=== PATIENT | female | born 1945 | race Hispanic/Latino ===

== ENCOUNTER 2024-05-10 08:00 | Outpatient (RCR) | payer MEDICARE | END 2024-05-12 | LOC: PT 08:00 | PROVIDERS: ATTEND Specialist | DX: M17.11 Unilateral primary osteoarthritis, right knee (principal); M25.561 Pain in right knee; M25.562 Pain in left knee; M25.661 Stiffness of right knee, not elsewhere classified; M25.662 Stiffness of left knee, not elsewhere classified; M62.81 Muscle weakness (generalized); R26.2 Difficulty in walking, not elsewhere classified ==

== ENCOUNTER 2024-06-06 14:00 | Outpatient (RCR) | payer MEDICARE | END 2024-06-12 | LOC: PT 14:00 | PROVIDERS: ATTEND Specialist | DX: M17.11 Unilateral primary osteoarthritis, right knee (principal); M25.562 Pain in left knee; M25.561 Pain in right knee; M25.661 Stiffness of right knee, not elsewhere classified; M25.662 Stiffness of left knee, not elsewhere classified; M62.81 Muscle weakness (generalized); R26.2 Difficulty in walking, not elsewhere classified ==

== ENCOUNTER 2024-07-12 08:00 | Outpatient (RCR) | payer MEDICARE ==
[~2024-07-12 08:00] MED LIST: BUPIVACAINE 0.5%/EPI 30 ML SDV INJ ONE
== END 2024-07-13 ==
LOC: PT 08:00
PROVIDERS: ATTEND Specialist
DX: M17.11 Unilateral primary osteoarthritis, right knee (principal); M25.562 Pain in left knee; M25.561 Pain in right knee; M62.81 Muscle weakness (generalized)

== ENCOUNTER 2024-07-22 08:00 | Outpatient (RCR) | payer MEDICARE | END 2024-08-12 | LOC: PT 08:00 | PROVIDERS: ATTEND Specialist | DX: M25.562 Pain in left knee (principal); M25.561 Pain in right knee; M17.11 Unilateral primary osteoarthritis, right knee; M62.81 Muscle weakness (generalized) ==